=== PATIENT | male | born 1975 | race African-American/Black ===

== ENCOUNTER 2019-03-09 05:27 | Emergency (ER) | payer MEDICAID ==
[2019-03-09] MEDS ORDERED: Insulin GLARGINE(*) 1 UNITS UNIT SUBCUT ONE (05:51)
[2019-03-09 06:10] LABS: Hematocrit 37 % (42-52); Hemoglobin 12.6 g/dL (14.0-18.0); Mean Corpuscular HGB Conc 34 g/dL (31-36); Mean Corpuscular Hemoglobin 29 pg (27-31); Mean Corpuscular Volume 87 fL (80-94); Mean Platelet Volume 11.3 fL (7.4-10.4); Platelet Count 212 10^3/uL (150-450); Red Blood Count 4.32 10^6 /uL (4.18-5.48); Red Cell Distribution Width 14 % (10-15)
[2019-03-09] MEDS: NS 0.9% 1000 ML** 2,000 ML IV ONE (06:16)
[2019-03-09 06:26] LABS: Albumin 3.4 g/dL (3.2-5.2); Albumin/Globulin Ratio 1.1 (1-3); C Reactive Protein 5.07 mg/L (<8.01); Calcium 8.8 mg/dL (8.6-10.3); EGFR African American 39.7 (>60); EGFR Non-African American 32.8 (>60); Globulin 3.2 g/dL (2-4); Magnesium 2.1 mg/dL (1.9-2.7); Potassium 3.2 mmol/L (3.5-5.0); Total Bilirubin 0.3 mg/dL (0.2-1.0); Total Protein 6.6 g/dL (6.4-8.9)
[2019-03-09] MEDS ORDERED: Potassium Chlor TAB* 20 MEQ TAB.ER PO ONE ×3 (06:43→09:24)
[2019-03-09 06:51] LABS: ABS Eosinophils 0.1 10^3/ul (0-0.6); ABS Monocytes 0.9 10^3/ul (0-0.8); Eosinophil % 0.8 %; Large Platelets Present; Lymphocyte % 24.8 %; Nucleated Red Blood Cells % 0.1
--- NOTE | 2019-03-09 07:34 | ED ---
Lower Extremity - HPI Summary HPI Summary: This patient is a 43-year-old male with a history of obesity and diabetes type 2 presenting to the ED after fall this morning while going to the bathroom. He states he slipped and fell and is unsure how he twisted his ankle, however endorses deformity to the right ankle. He denies any pain. He only endorses deformity to the right ankle and lower extremity. Endorses diabetic neuropathy at baseline. Denies any other injuries. He states he typically takes 55 units of Lantus at morning and at night and has not taken his medication. He typically runs very high, per patient's , over 300 typically. He denies any other symptoms, diaphoresis, nausea, vomiting. Pain is 0/10. Tingling to the bilateral lower extremities at baseline. His last A1c was 14. History of DM type II with diabetic neuropathy, hypertension, hypercholesterolemia, volume overload, CHF, morbid obesity Currently taking Torsemide 20mg BID, nifedipine, carvedilol, metolazone, hydralazine 100 mg 2 times daily, aspirin 81 mg once daily, Lantus 55 mg twice a day and aspart 15 units 3 times daily at mealtime. His glucose is not controlled despite these medications and continues to be over 300-400 daily at glucose home checks. He does see a data warehousing architect and his last echo was in September, unsure of ejection fraction. Continues to have serial EKGs yearly. Patient lives in the [place] and is here visiting. Last PO intake last night. - History of Current Complaint Chief Complaint: EDFall Stated Complaint: R ANKLE INJURY PER EMS Time Seen by Provider: 03/09/19 05:46 Hx Obtained From: Patient Mechanism Of Injury: Twisted Onset of Pain: Minutes, Hours Onset/Duration: Minutes Severity Initially: Mild Severity Currently: None Pain Intensity: 4 Pain Scale Used: 0-10 Numeric Timing: Constant Location: Is Discrete @ - right lower extremity Associated Signs And Symptoms: Negative: Swelling, Redness, Bruising Aggravating Factor(s): Standing, Ambulation Alleviating Factor(s): Rest - Risk Factors Gout Risk Factors: Negative DVT Risk Factors: Negative Septic Arthritis Risk Factor: Negative - Allergies/Home Medications Allergies/Adverse Reactions: Allergies Allergy/AdvReac Type Severity Reaction Status Date / Time sweat, saliva, secretions Allergy See Comment Uncoded 03/09/19 05:31 PMH/Surg Hx/FS Hx/Imm Hx Previously Healthy: Yes - Immunization History Hx Pertussis Vaccination: No Immunizations Up to Date: Yes Infectious Disease History: No Infectious Disease History: Denies: Traveled Outside the [place] in Last 30 Days - Social History Occupation: Employed Full-time Lives: With Family Alcohol Use: Rare Hx Substance Use: No Substance Use Type: Reports: None Smoking Status (MU): Never Smoked Tobacco Review of Systems Negative: Fever, Chills, Fatigue, Skin Diaphoresis Negative: Palpitations, Chest Pain Negative: Shortness Of Breath, Cough Genitourinary: Negative Positive: no symptoms reported, see HPI Positive: Other - deformity to the R lower ext Negative: Rash, Bruising Neurological: Negative All Other Systems Reviewed And Are Negative: Yes Physical Exam Triage Information Reviewed: Yes Vital Signs On Initial Exam: Initial Vitals Temp Pulse Resp BP Pulse Ox 98.1 F 87 16 158/86 97 03/09/19 05:28 03/09/19 05:28 03/09/19 05:28 03/09/19 05:28 03/09/19 05:28 Vital Signs Reviewed: Yes Appearance: Positive: Well-Appearing, Well-Nourished Skin: Positive: Warm, Skin Color Reflects Adequate Perfusion Head/Face: Positive: Normal Head/Face Inspection Eyes: Positive: EOMI, ILDEFONSO, Conjunctiva Clear Neck: Positive: Supple, No Lymphadenopathy Respiratory/Lung Sounds: Positive: Clear to Auscultation, Breath Sounds Present Cardiovascular: Positive: RRR, Pulses are Symmetrical in both Upper and Lower Extremities Musculoskeletal: Positive: Other - right lower extremity deformity noted Neurological: Positive: Speech Normal Psychiatric: Positive: Affect/Mood Appropriate AVPU Assessment: Alert Procedures - Sedation Patient Received Moderate/Deep Sedation with Procedure: No Diagnostics - Vital Signs Vital Signs Temp Pulse Resp BP Pulse Ox 03/09/19 05:28 98.1 F 87 16 158/86 97 - Laboratory Lab Results: Lab Results 03/09/19 03/09/19 03/09/19 Range/Units 05:39 05:45 05:59 WBC 8.0 (3.5-10.8) 10^3/uL RBC 4.32 (4.18-5.48) 10^6 /uL Hgb 12.6 L (14.0-18.0) g/dL Hct 37 L (42-52) % MCV 87 (80-94) fL MCH 29 (27-31) pg MCHC 34 (31-36) g/dL RDW 14 (10-15) % Plt Count 212 (150-450) 10^3/uL MPV 11.3 H (7.4-10.4) fL Neut % (Auto) 62.6 % Lymph % (Auto) 24.8 % Garvin % (Auto) 11.3 % Eos % (Auto) 0.8 % Baso % (Auto) 0.5 % Absolute Neuts (auto) 5.0 (1.5-7.7) 10^3/ul Absolute Lymphs (auto) 2.0 (1.0-4.8) 10^3/ul Absolute Monos (auto) 0.9 H (0-0.8) 10^3/ul Absolute Eos (auto) 0.1 (0-0.6) 10^3/ul Absolute Basos (auto) 0.0 (0-0.2) 10^3/ul Absolute Nucleated RBC 0.0 10^3/ul Nucleated RBC % 0.1 Large Platelets Present VBG pH (7.32-7.43) VBG pCO2 (41-51) mmHg VBG pO2 (35-45) mmHg VBG HCO3 (24-28) mmol/L VBG O2 Saturation (70-80) % VBG Base Excess (0.0-4.0) mmol/L Sodium (135-145) mmol/L Potassium (3.5-5.0) mmol/L Chloride (101-111) mmol/L Carbon Dioxide (22-32) mmol/L Anion Gap (2-11) mmol/L BUN (6-24) mg/dL Creatinine (0.67-1.17) mg/dL Est GFR ( Amer) (>60) Est GFR (Non-Af Amer) (>60) BUN/Creatinine Ratio (8-20) Glucose (70-100) mg/dL POC Glucose (mg/dL) > 444 H* (70-100) mg/dL Glucose Meter Confirm 625 H* (70-100) mg/dL Lactic Acid (0.5-2.0) mmol/L Calcium (8.6-10.3) mg/dL Magnesium (1.9-2.7) mg/dL Total Bilirubin (0.2-1.0) mg/dL AST (13-39) U/L ALT (7-52) U/L Alkaline Phosphatase (34-104) U/L C-Reactive Protein (<8.01) mg/L Total Protein (6.4-8.9) g/dL Albumin (3.2-5.2) g/dL Globulin (2-4) g/dL Albumin/Globulin Ratio (1-3) 03/09/19 03/09/19 03/09/19 Range/Units 05:59 05:59 05:59 WBC (3.5-10.8) 10^3/uL RBC (4.18-5.48) 10^6 /uL Hgb (14.0-18.0) g/dL Hct (42-52) % MCV (80-94) fL MCH (27-31) pg MCHC (31-36) g/dL RDW (10-15) % Plt Count (150-450) 10^3/uL MPV (7.4-10.4) fL Neut % (Auto) % Lymph % (Auto) % Garvin % (Auto) % Eos % (Auto) % Baso % (Auto) % Absolute Neuts (auto) (1.5-7.7) 10^3/ul Absolute Lymphs (auto) (1.0-4.8) 10^3/ul Absolute Monos (auto) (0-0.8) 10^3/ul Absolute Eos (auto) (0-0.6) 10^3/ul Absolute Basos (auto) (0-0.2) 10^3/ul Absolute Nucleated RBC 10^3/ul Nucleated RBC % Large Platelets VBG pH 7.46 H (7.32-7.43) VBG pCO2 53 H (41-51) mmHg VBG pO2 38.0 (35-45) mmHg VBG HCO3 33.2 H (24-28) mmol/L VBG O2 Saturation 62.4 L (70-80) % VBG Base Excess 11.8 H (0.0-4.0) mmol/L Sodium 131 L (135-145) mmol/L Potassium 3.2 L (3.5-5.0) mmol/L Chloride 90 L (101-111) mmol/L Carbon Dioxide 32 (22-32) mmol/L Anion Gap 9 (2-11) mmol/L BUN 44 H (6-24) mg/dL Creatinine 2.20 H (0.67-1.17) mg/dL Est GFR ( Amer) 39.7 (>60) Est GFR (Non-Af Amer) 32.8 (>60) BUN/Creatinine Ratio 20.0 (8-20) Glucose 632 H* (70-100) mg/dL POC Glucose (mg/dL) (70-100) mg/dL Glucose Meter Confirm (70-100) mg/dL Lactic Acid 2.0 (0.5-2.0) mmol/L Calcium 8.8 (8.6-10.3) mg/dL Magnesium 2.1 (1.9-2.7) mg/dL Total Bilirubin 0.30 (0.2-1.0) mg/dL AST 12 L (13-39) U/L ALT 18 (7-52) U/L Alkaline Phosphatase 69 (34-104) U/L C-Reactive Protein 5.07 (<8.01) mg/L Total Protein 6.6 (6.4-8.9) g/dL Albumin 3.4 (3.2-5.2) g/dL Globulin 3.2 (2-4) g/dL Albumin/Globulin Ratio 1.1 (1-3) Result Diagrams: 03/09/19 05:59 03/09/19 08:24 Lab Statement: Any lab studies that have been ordered have been reviewed, and results considered in the medical decision making process. Lower Extremity Course/Dx - Course Course Of Treatment: This patient is evaluated for deformity to the right ankle and right lower leg. Pulses +2 intact bilaterally. No discoloration of the ankle or foot. X-rays obtained: IMPRESSION: FRACTURES OF THE PROXIMAL FIBULA, DISTAL FIBULA, AND POSTERIOR TIBIA WITH MEDIAL SUBLUXATION OF THE DISTAL TIBIA. Pt has no pain. Labs obtained which show a glucose of 632. Potassium 3.2. Repleted with 40meq PO. Given 55 units of his morning dose of Lantus. 2L fluids repletion. Rechecked levels at 8:15am: Repeat shows glucose 534. Potassium 3.3. He was given 13 units insulin and 20meq KCL in 1000ml NS run over 2 hours. Rechecked glucose level POC = 383. Called Dr. Shaw for consult who recommends reduction and posterior sugar tong splint. Given Fentanyl 100mg IV and hematoma block with bupivacaine and lidocaine 10mg. Pt tolerated well. Continues to deny pain. Distracted laterally and anteriorly with reduction. Pt tolerated well. Posterior with sugar tong plaster splint applied. Reduction xrays whos near anatomical alignment. Pt OK for discharge. Crutches given. Pt requests discharge as his family is driving him back to the [place] to go to the ED for admission and surgery. Pt called ortho in the [place] who suggested and requested this. - Diagnoses Differential Diagnosis/HQI/PQRI: Positive: Other - Diabetes, fracture of the fibula and tibia with subluxation Provider Diagnoses: Tibia/fibula fracture - Physician Notifications Discussed Care Of Patient With: Aislinn Shaw Discharge ED - Sign-Out/Discharge Documenting (check all that apply): Patient Departure - Discharge Plan Condition: Stable Disposition: HOME Patient Education Materials: Ankle Fracture (ED) Referrals: No Primary Care Phys,NOPCP [Primary Care Provider] - Additional Instructions: You were seen in the Emergency Department for ankle fracture Please follow up immediately with ortho in the [place] Crutches for ambulation and do not bear any weight onto the extremity Your glucose was 500+ today - please recheck your sugars today and continue your medications as prescribed for your diabetes If you develop any worsening or changing symptoms, please return to the ED Do not get the splint wet Please follow up with your primary care provider in the next 2-3 days It was a pleasure taking care of you today - Billing Disposition and Condition Condition: STABLE Disposition: Home
[2019-03-09 07:51] LABS: Urine Appearance Clear; Urine Bacteria Absent (Absent); Urine Bilirubin Negative (Negative); Urine Blood Negative (Negative); Urine Color Straw; Urine Glucose 3+(>=500 mg/dL) (Negative); Urine Ketones Negative (Negative); Urine Nitrite Negative (Negative); Urine Protein 2+(100 mg/dL) (Negative); Urine Red Blood Cell Trace(0-2/hpf) (Absent); Urine Specific Gravity 1.011 (1.010-1.030); Urine Squamous Epithelial Cell Present (Absent); Urine Urobilinogen Negative (Negative); Urine White Blood Cell Trace(0-5/hpf) (Absent)
[2019-03-09] MEDS ORDERED: fentaNYL* 50 MCG/ML 2 ML VIAL (100 MCG VIAL) IV SLOW PU ONE (08:35)
[2019-03-09 08:48] LABS: Albumin 3.2 g/dL (3.2-5.2); Albumin/Globulin Ratio 1.1 (1-3); BUN/Creatinine Ratio 20.2 (8-20); Calcium 8.3 mg/dL (8.6-10.3); EGFR African American 43.6 (>60); Total Bilirubin 0.3 mg/dL (0.2-1.0); Total Protein 6.2 g/dL (6.4-8.9)
[2019-03-09 09:12] LABS: Potassium 3.3 mmol/L (3.5-5.0)
[2019-03-09] MEDS ORDERED: Insulin REGULAR(*) 1 UNITS UNIT IV PUSH ONE (09:15)
[2019-03-09] MEDS ORDERED: NS 0.9% w/ 20 Meq KCL 1000 ML* 1,000 ML IV ONE (10:00)
[2019-03-09 11:00] VITALS: BP 147/81
== END 2019-03-09 11:03 | disposition home or self-care (01) ==
LOC: ED 05:27
DX: S82.201A Unspecified fracture of shaft of right tibia, initial encounter for closed fracture (principal); S82.401A Unspecified fracture of shaft of right fibula, initial encounter for closed fracture; W01.0XXA Fall on same level from slipping, tripping and stumbling without subsequent striking against object, initial encounter; Y92.9 Unspecified place or not applicable; E11.9 Type 2 diabetes mellitus without complications; I10 Essential (primary) hypertension; E78.00 Pure hypercholesterolemia, unspecified; E66.9 Obesity, unspecified; R94.31 Abnormal electrocardiogram [ECG] [EKG]; Z79.4 Long term (current) use of insulin
CPT/HCPCS: 36415; 80053; 81003; 81015; 82803; 82947; 83605; 83735; 85025; 86140; 87086; 93005; 96361; 96374; 99282; A9270-GY; J3010